=== PATIENT | male | born 1955 | race African-American/Black ===

== ENCOUNTER 2018-02-25 19:54 | Inpatient (IN) | payer MEDICARE ==
[2018-02-25 21:11] LABS: Lavender RECEIVED; Red RECEIVED
[2018-02-25 21:15] LABS: #Eosinphils 0.1 thou/uL (0.0-0.7); #Lymphocytes 1.2 thou/uL (1.20-3.40); #Monocytes 0.6 thou/uL (0.11-0.59); #Neutrophils 7.3 thou/uL (1.40-6.50); %Basophils 0.1 % (0.0-1.0); %Eosinophils 1.6 % (0.0-10.0); %Lymphocytes 12.7 % (21.0-51.0); %Monocytes 6.5 % (0.0-10.0); %Neutrophils 79.2 % (42.0-75.0); Hemoglobin 13.1 g/dL (14.0-18.0); Mean Corpuscular HGB CONC 33.2 g/dL (32.0-36.0); Mean Corpuscular Hemoglobin 30.7 pg (27.0-31.0); Mean Corpuscular Volume 92.4 fL (78.0-98.0); Mean Platelet Volume 6.2 fL (7.4-10.4); Platelet Count 311 thou/uL (130-400); RBC Distribution Width 12.3 % (11.5-14.5); Red Blood Cell (RBC) Count 4.27 mill/uL (4.70-6.10); White Blood Cell (WBC) Count 9.2 thou/uL (4.8-10.8)
[2018-02-25 21:34] LABS: ALT (SGPT) 20 U/L (8-55); AST (SGOT) 17 U/L (5-34); Albumin 3.7 g/dL (3.4-4.8); Alkaline Phosphatase 155 U/L (40-150); Anion Gap 18 mmol/L (10-20); BUN (Urea Nitrogen) 12 mg/dL (8.4-25.7); Bilirubin, Total 0.2 mg/dL (0.2-1.2); Calc. Creatinine Clearance 0 mL/min (70-130); Calcium 8.7 mg/dL (7.8-10.44); Carbon Dioxide 20 mmol/L (23-31); Chloride 106 mmol/L (98-107); Estimated GFR-MDRD Greater than 90; Globulin 3.8 g/dL (2.4-3.5); Glucose 138 mg/dL (80-115); Protein, Total 7.5 g/dL (5.8-8.1); Sodium 140 mmol/L (136-145)
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
[2018-02-25] MEDS ORDERED: Lorazepam 2 MG/ML VIAL ONE (22:01)
[2018-02-25] MEDS ORDERED: Ondansetron ODT 4 MG TAB PO PRN (22:13)
[2018-02-25] MEDS ORDERED: Calcium Carbonate 500 MG ChewTAB PO PRN (22:13)
[2018-02-25] MEDS ORDERED: Lorazepam 2 MG/ML VIAL SLOW IVP PRN (22:13)
[2018-02-25] MEDS ORDERED: Bisacodyl 5 MG TAB PO PRN (22:13)
[2018-02-25] MEDS ORDERED: Senokot S 8.6-50 MG TAB PO PRN (22:13)
[2018-02-25] MEDS ORDERED: Acetaminophen 650 MG Suppository PR PRN (22:13)
[2018-02-25] MEDS ORDERED: Acetaminophen 325 MG TAB PO PRN (22:13)
[2018-02-25] MEDS ORDERED: Ondansetron PF 4 MG/2 ML Vial IVP PRN (22:13)
[2018-02-25] MEDS ORDERED: HumaLOG 300 UNITS/3 ML VIAL SC PRN (22:20)
[2018-02-25] MEDS ORDERED: Dextrose 5% in Water 1,000 ML IV PRN (22:20)
[2018-02-25] MEDS ORDERED: Dextrose 50% Abboject 50 ML SYRINGE SLOW IVP PRN (22:20)
[2018-02-26] MEDS: Sodium Chloride 0.9% 1,000 ML IV SCH ×2 (00:26→08:03)
[2018-02-26 00:47] VITALS: BMI 24.4
[2018-02-26 05:14] LABS: Anion Gap 15 mmol/L (10-20); BUN (Urea Nitrogen) 9 mg/dL (8.4-25.7); Calc. Creatinine Clearance 133 mL/min (70-130); Calcium 8.4 mg/dL (7.8-10.44); Carbon Dioxide 20 mmol/L (23-31); Chloride 106 mmol/L (98-107); Estimated GFR-MDRD Greater than 90; Glucose 186 mg/dL (80-115); Potassium 4.2 mmol/L (3.5-5.1); Sodium 137 mmol/L (136-145)
[2018-02-26 05:29] LABS: Band 10 % (5-11); Basophilic Stippling SLIGHT = 1-2 cells (100X) (None Seen); Elliptocytes SLIGHT = 2-5 cells (100X) (0-1/hpf); Hemoglobin 12.4 g/dL (14.0-18.0); Lymphocytes 10 % (21-51); MDiff Complete? YES; Mean Corpuscular HGB CONC 33.6 g/dL (32.0-36.0); Mean Corpuscular Hemoglobin 30.3 pg (27.0-31.0); Mean Platelet Volume 6.9 fL (7.4-10.4); Monocytes 11 % (0-10); Neutrophil 63 % (42-75); PLT Morphology Comment Appears Adequate; Platelet Count 320 thou/uL (130-400); RBC Distribution Width 12.1 % (11.5-14.5); Reactive Lymphocytes 6 % (0-10); Red Blood Cell (RBC) Count 4.09 mill/uL (4.70-6.10); White Blood Cell (WBC) Count 12.1 thou/uL (4.8-10.8)
[2018-02-26] MEDS: Enoxaparin Sodium 40 MG/0.4 ML SYRINGE SC SCH (08:04)
[2018-02-26] MEDS: Famotidine/PF 20 mg/2ml Vial SLOW IVP SCH (08:04)
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
[2018-02-26] MEDS: Famotidine 20 MG TAB PO SCH ×2 (09:53→20:08)
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
[2018-02-26] MEDS: HumaLOG 300 UNITS/3 ML VIAL SC PRN (17:03)
--- NOTE | 2018-02-26 17:10 | MRI ---
NONCONTRAST MRI BRAIN: Date: 02-26-18 History: Seizure. Comparison: CT head, 02-25-18. FINDINGS: There is an area of encephalomalacia and gliosis seen in the medial aspect of the left occipital lobe . There is significant motion artifact present on FLAIR imaging which limits evaluation. However, the re does appear to be scattered punctate areas of increased FLAIR and T2 weighted signal which are non specific and probably related to mild chronic small vessel ischemic changes. There are no areas of re stricted diffusion seen to suggest an acute infarction. Septum pellucidum and third ventricle are on the midline. The ventricular system is normal in size, s hape, and position. There is mild cerebral volume loss, not unexpected for the patient's age. Appropriate flow voids are demonstrated at the base of the brain. Venetie Ira lenses are not visualized. There is mucosal thickening seen throughout the ethmoidal air cells bilaterally, trace mucosal thicke ankush in each maxillary antrum. Skull base has a normal MRI appearance. IMPRESSION: 1. No acute intracranial abnormality is demonstrated. 2. Small focal area of encephalomalacia and gliosis in the medial left occipital lobe likely related to a remote area of infarction. 3. Mild chronic small vessel ischemic changes and cerebral volume loss. 4. Sinus disease. POS: [facility]
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
[2018-02-27] MEDS: Famotidine/PF 20 mg/2ml Vial SLOW IVP SCH ×2 (02:52→08:31)
[2018-02-27] MEDS: HumaLOG 300 UNITS/3 ML VIAL SC PRN ×3 (06:28→16:57)
[2018-02-27] MEDS: Famotidine 20 MG TAB PO SCH (08:31)
[2018-02-27] MEDS: Enoxaparin Sodium 40 MG/0.4 ML SYRINGE SC SCH (08:31)
[2018-02-27 16:15] VITALS: TEMP 97.2
[2018-02-27 16:16] VITALS: BP 139/82
[2018-02-27] MEDS ORDERED: levETIRAcetam 500 MG TAB PO SCH ×2 (21:00)
[2018-02-27] MEDS ORDERED: Atorvastatin Calcium 10 MG TAB PO SCH (21:00)
[2018-02-27] MEDS ORDERED: glipiZIDE 5 MG TAB PO SCH (21:00)
--- NOTE | 2018-02-28 14:13 | DIS ---
DATE OF ADMISSION: 02/27/2018 DATE OF DISCHARGE: 02/27/2018 DISCHARGE DIAGNOSES: 1. Acute on chronic seizure. 2. 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 3. Hypertension. 4. Diabetes. HOSPITAL COURSE: The patient is a very pleasant 63-year-old male who has history of recurrent seizures, who initially came into the hospital for seizure. At this time, he was about to be discharged to home when he had another seizure and he was admitted for further observation. In talking to the patient's family, especially the son, the patient's son stated that they had noticed a few days of his medications that were not taken by the patient. The patient did have a Dilantin level checked, which was 9, which was subtherapeutic. At this time, he was loaded with Dilantin and also was admitted to the hospital for further evaluation. He did have a brain CT, which did indicate a remote insult to the medial left occipital lobe. At this time, I did go ahead and order an MRI of the brain, which did indicate a small focal area of encephalomalacia and gliosis in the medial left occipital lobe, likely related to a remote area of infarct and also had some mild chronic vessel ischemia. This was discussed with the patient's son. During the hospital stay, the patient had an unwitnessed fall, which the patient states he does not remember. At this time, further talking to the son, the son states that at times, the patient forgets and does not remember certain things. Based on talking with the patient's son, it was clear that his seizure was most likely secondary to missed doses of his medication and also subtherapeutic level of his Dilantin. He was loaded with Dilantin. I will continue the same dose of Dilantin extended release 100 mg b.i.d. and also we will continue his Keppra 500 mg b.i.d. I have encouraged the patient to follow up with Dr. Soriano, who is a neurologist in 2 to 3 weeks and also we will check a Dilantin level next week sometime, results to be faxed to his primary care doctor. HOME MEDICATIONS: His home medications will be as of the followin. Aspirin 81 mg daily and Atorvastatin 10 mg daily, which are new, given his remote insult to his brain. 2. Phenytoin 100 mg b.i.d. 3. Glipizide 5 mg b.i.d. 4. Keppra 500 mg b.i.d. 5. Metformin 1000 mg b.i.d. PHYSICAL EXAMINATION: VITAL SIGNS: 97.7, 92, 16, 98% on room air, 139/82. GENERAL: He is awake, alert, and oriented x3. Does not appear to be in distress. CV: S1 and S2 present. No murmurs, rubs, or gallops. ABDOMEN: Soft and nontender. Bowel sounds are present x2. EXTREMITIES: No edema. Pedal pulses are present x2. DISCHARGE INSTRUCTIONS: Again, he will be discharged home. He will follow up with his primary care doctor. Job ID: [id number]
== END 2018-02-27 19:51 | disposition home or self-care (01) | DRG 101 ==
LOC: ERS 19:54 → 2SE 22:10 → OBSVTOIN 02-27 17:55
PROVIDERS: ADMIT Internal Medicine; ATTEND Internal Medicine
DX: G40.419 Other generalized epilepsy and epileptic syndromes, intractable, without status epilepticus (principal); I10 Essential (primary) hypertension; E11.9 Type 2 diabetes mellitus without complications; Z91.14 Patient's other noncompliance with medication regimen; Z83.3 Family history of diabetes mellitus; Z79.84 Long term (current) use of oral hypoglycemic drugs; Z79.899 Other long term (current) drug therapy
CPT/HCPCS: 36415; 36416; 70450; 70551; 80048; 80053; 80185; 83735; 84146; 84443; 85025; 90471; 90686; 90732; 93005; 94760; 96365; 96372; G0008; G0009; G8978-GP-CJ; G8979-GP-CJ; G8980-GP-CJ; G8996-GN-CH; G8997-GN-CH; J1650; J1953; J2060; J7050; Q2009; S0028

== ENCOUNTER 2019-02-08 12:15 | Observation (INO) | payer MEDICARE, MEDICAID ==
[2019-02-08 13:22] LABS: Bilirubin Negative (Negative); Blood, Urine 1+ (Negative); Clarity Turbid (Clear); Glucose, Urine (Dipstick) Greater than 1000 mg/dL (Negative); Leukocyte 75 Leu/uL (Negative); Nitrite Negative (Negative); Protein, Urine (Dipstick) 20 mg/dL (Neg-Trace); Squamous Epithelial None Seen HPF (0-3); Urobilinogen Normal mg/dL (Less than 2)
[2019-02-08 13:31] LABS: Bacteria/HPF 4+ HPF (None Seen)
[2019-02-08 14:32] LABS: #Monocytes 0.5 thou/uL (0.11-0.59); #Neutrophils 6.5 thou/uL (1.40-6.50); %Basophils 0.2 % (0.0-1.0); %Eosinophils 0.5 % (0.0-10.0); %Lymphocytes 12.2 % (21.0-51.0); %Monocytes 6.2 % (0.0-10.0); Hemoglobin 12.9 g/dL (14.0-18.0); Mean Corpuscular Hemoglobin 30.6 pg (27.0-31.0); Mean Corpuscular Volume 92.5 fL (78.0-98.0); Mean Platelet Volume 6.3 fL (7.4-10.4); Platelet Count 302 thou/uL (130-400); RBC Distribution Width 12.6 % (11.5-14.5); Red Blood Cell (RBC) Count 4.23 mill/uL (4.70-6.10)
[2019-02-08] MEDS ORDERED: Lorazepam 2 MG/ML VIAL ONE (14:39)
[2019-02-08] MEDS ORDERED: Acetaminophen 325 MG TAB PO PRN (14:52)
[2019-02-08] MEDS ORDERED: Bisacodyl 5 MG TAB PO PRN (14:52)
[2019-02-08] MEDS ORDERED: Lorazepam 2 MG/ML VIAL SLOW IVP PRN (14:56)
[2019-02-08 14:59] LABS: ALT (SGPT) 18 U/L (8-55); AST (SGOT) 14 U/L (5-34); Albumin 3.9 g/dL (3.4-4.8); Alkaline Phosphatase 146 U/L (40-110); Anion Gap 17 mmol/L (10-20); BUN (Urea Nitrogen) 11 mg/dL (8.4-25.7); Bilirubin, Total 0.2 mg/dL (0.2-1.2); Calc. Creatinine Clearance 0 mL/min (70-130); Calcium 8.7 mg/dL (7.8-10.44); Carbon Dioxide 21 mmol/L (23-31); Chloride 102 mmol/L (98-107); Estimated GFR-MDRD Greater than 90; Globulin 3.9 g/dL (2.4-3.5); Glucose 238 mg/dL (80-115); Potassium 4.4 mmol/L (3.5-5.1); Protein, Total 7.8 g/dL (5.8-8.1); Sodium 136 mmol/L (136-145)
[2019-02-08] MEDS ORDERED: Dextrose 50% Abboject 50 ML SYRINGE SLOW IVP PRN (14:59)
[2019-02-08] MEDS ORDERED: Dextrose 5% in Water 1,000 ML IV PRN (14:59)
[2019-02-08] MEDS ORDERED: levETIRAcetam In NaCl (Iso-Os) 1,000 MG in Premix Bag 1 BAG IVPB SCH (15:00)
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
--- NOTE | 2019-02-08 15:40 | CT ---
CT BRAIN WITHOUT CONTRAST: HISTORY: Seizure, fall COMPARISON: 02/25/2018 FINDINGS: Old infarction involving the medial left occipital lobe is again seen. No evidence of acute infarct, hemorrhage, midline shift or abnormal extra-axial fluid collections is seen. The ventricular size is appropriate and the basilar cisterns are patent. The bony calvarium is intact. The visualized para nasal sinuses and mastoid air cells are well aerated. There is mild mucosal disease in the ethmoid air cells. IMPRESSION: No CT evidence of acute intracranial process.
[2019-02-08] MEDS: Sodium Chloride 0.9% 1,000 ML IV SCH (17:48)
[2019-02-08] MEDS: cefTRIAXone\\ROCEPHIN 1 GM in Sodium Chloride 0.9% 100 ML IVPB SCH (19:59)
[2019-02-08 20:08] VITALS: BMI 22.9
[2019-02-08 20:16] LABS: Lactic Acid 2.8 mmol/L (0.5-2.2)
[2019-02-08] MEDS ORDERED: Atorvastatin Calcium 10 MG TAB PO SCH (21:00)
[2019-02-08] MEDS: levETIRAcetam 500 MG TAB PO SCH (23:12)
[2019-02-09] MEDS: HumaLOG 300 UNITS/3 ML VIAL SC PRN ×2 (06:50→13:46)
[2019-02-09 08:48] LABS: Anion Gap 10 mmol/L (10-20); BUN (Urea Nitrogen) 12 mg/dL (8.4-25.7); Calc. Creatinine Clearance 112 mL/min (70-130); Calcium 8.8 mg/dL (7.8-10.44); Carbon Dioxide 26 mmol/L (23-31); Chloride 106 mmol/L (98-107); Estimated GFR-MDRD Greater than 90; Glucose 152 mg/dL (80-115); Potassium 4.1 mmol/L (3.5-5.1); Sodium 138 mmol/L (136-145)
[2019-02-09] MEDS ORDERED: Aspirin Chewable 81 MG TAB PO SCH (09:00)
[2019-02-09] MEDS: levETIRAcetam 500 MG TAB PO SCH (10:30)
[2019-02-09] MEDS: Sodium Chloride 0.9% 1,000 ML IV SCH (10:31)
[2019-02-09 10:51] LABS: #Basophils 0.1 thou/uL (0.0-0.2); #Eosinphils 0.2 thou/uL (0.0-0.7); #Lymphocytes 1.8 thou/uL (1.20-3.40); #Monocytes 0.7 thou/uL (0.11-0.59); #Neutrophils 7.4 thou/uL (1.40-6.50); %Basophils 0.7 % (0.0-1.0); %Eosinophils 2.1 % (0.0-10.0); %Lymphocytes 17.3 % (21.0-51.0); %Neutrophils 72.9 % (42.0-75.0); Hemoglobin 13.3 g/dL (14.0-18.0); Mean Corpuscular HGB CONC 32.9 g/dL (32.0-36.0); Mean Corpuscular Hemoglobin 30.7 pg (27.0-31.0); Mean Corpuscular Volume 93.4 fL (78.0-98.0); Mean Platelet Volume 6.4 fL (7.4-10.4); Platelet Count 311 thou/uL (130-400); RBC Distribution Width 12.7 % (11.5-14.5); Red Blood Cell (RBC) Count 4.34 mill/uL (4.70-6.10); White Blood Cell (WBC) Count 10.2 thou/uL (4.8-10.8)
[2019-02-09 15:58] VITALS: BP 134/68; TEMP 98.6
[2019-02-09] MEDS: cefTRIAXone\\ROCEPHIN 1 GM in Sodium Chloride 0.9% 100 ML IVPB SCH (16:16)
--- NOTE | 2019-02-09 21:01 | DIS ---
DATE OF ADMISSION: 02/08/2019 DATE OF DISCHARGE: 02/09/2019 PRIMARY CARE PROVIDER: Susanna Gallegos. DISCHARGE DIAGNOSES: 1. Seizure. 2. Lactic acidosis. 3. Urinary tract infection, suspected. CONDITION OF PATIENT ON THE DAY OF DISCHARGE: Stable. I assessed Mr. Deluna on the day of discharge. He denies any complaints. He is alert and oriented x3. Vital signs are stable. S1 and S2 are heard, regular. Lungs are clear to auscultation bilaterally. HOSPITAL COURSE: Mr. Deluna is a pleasant 64-year-old gentleman, who was admitted to [facility] on 02/08/2019, for seizures. He reportedly ran out of Keppra a week prior to this admission. He was loaded with Keppra. His phenytoin level was subtherapeutic at 9.6. His phenytoin dose has been changed from 100 mg 2 times a day to 100 mg 3 times a day. Urinalysis was suggestive of urinary tract infection. He was started on antibiotics, being stepped down to oral antibiotics at the time of discharge. He has also been advised to follow up with Neurology if he keeps having recurrent seizures. LABORATORY DATA: On the day of discharge, he has white count 10,200, hemoglobin 13.3, platelet count 311,000. Sodium 138, potassium 4.1, and creatinine 0.69. DISCHARGE MEDICATIONS: 1. Glipizide 5 mg 2 times a day. 2. Metformin 1000 mg 2 times a day. 3. Aspirin 81 mg daily. 4. Lipitor 10 mg at bedtime. 5. Keppra 500 mg 2 times a day. 6. Macrobid 100 mg 2 times a day for 6 days. 7. Phenytoin 100 mg 3 times a day. FOLLOWUP: He has been advised to follow up with primary care provider for final blood and urine culture reports. He has also been advised to have his phenytoin and albumin levels checked in 5 days through primary care provider's office. Many thanks for allowing me to participate in your patient's care. Please feel free to contact me with any questions or concerns. DISCHARGE DESTINATION: Home. Job ID: [id number]
== END 2019-02-09 18:50 | disposition home or self-care (01) ==
LOC: ERS 12:15 → INTOOBSV 17:20 → 2SE 17:20
PROVIDERS: ADMIT Internal Medicine; ATTEND Internal Medicine
DX: G40.909 Epilepsy, unspecified, not intractable, without status epilepticus (principal); E87.2 Acidosis; N39.0 Urinary tract infection, site not specified; E11.9 Type 2 diabetes mellitus without complications; Z79.82 Long term (current) use of aspirin; Z79.84 Long term (current) use of oral hypoglycemic drugs; Z79.899 Other long term (current) drug therapy; W18.30XA Fall on same level, unspecified, initial encounter
CPT/HCPCS: 70450; 80048; 80053; 80185; 82962 ×2; 83605; 85025 ×2; 87040; 87086; 96361; 96374; 96375; 99285; G0378 ×3; 36415; 36416; 81003; 81015; J0696; J1953; J2060; J3490

== ENCOUNTER 2019-03-14 15:18 | Outpatient (CLI) | payer MEDICARE, MEDICAID ==
--- NOTE | 2019-03-14 15:30 | RAD ---
XR Knee Rt 4 View STANDARD HISTORY: Right knee pain FINDINGS: No fracture or dislocation is identified. Degenerative changes and chondrocalcinosis are noted.
== END 2019-03-14 15:19 | disposition home or self-care (01) ==
LOC: RAD-FRANK 15:18
PROVIDERS: ATTEND Nurse Practitioner Family
DX: M25.561 Pain in right knee (principal); M94.261 Chondromalacia, right knee; M17.11 Unilateral primary osteoarthritis, right knee

== ENCOUNTER 2021-10-24 21:48 | Emergency (ER) | payer OTHER, MEDICAID ==
[2021-10-24] MEDS ORDERED: Boostrix 0.5 ML (Tdap) VIAL ONE (22:34)
[2021-10-24 23:29] LABS: ALT (SGPT) 16 U/L (8-55); AST (SGOT) 16 U/L (5-34); Albumin 4.1 g/dL (3.4-4.8); Alkaline Phosphatase 100 U/L (40-110); Anion Gap 18 mmol/L (10-20); BUN (Urea Nitrogen) 14 mg/dL (8.4-25.7); Bilirubin, Total 0.3 mg/dL (0.2-1.2); Calc. Creatinine Clearance 0 mL/min (70-130); Calcium 9.2 mg/dL (7.8-10.44); Carbon Dioxide 20 mmol/L (23-31); Chloride 102 mmol/L (98-107); Estimated GFR 99; Globulin 4.4 g/dL (2.4-3.5); Glucose 260 mg/dL (80-115); Lipase 29 U/L (8-78); Magnesium 1.8 mg/dL (1.6-2.6); Potassium 4.4 mmol/L (3.5-5.1); Protein, Total 8.5 g/dL (5.8-8.1); Sodium 136 mmol/L (136-145)
[2021-10-25 00:35] LABS: Bacteria/HPF 3+ HPF (None Seen); Bilirubin Negative (Negative); Blood, Urine 2+ (Negative); Clarity Turbid (Clear); Glucose, Urine (Dipstick) Greater than 1000 mg/dL (Negative); Ketone, Urine 10 mg/dL (Negative); Leukocyte 75 Leu/uL (Negative); Nitrite 1+ (Negative); Protein, Urine (Dipstick) 50 mg/dL (Neg-Trace); RBC/HPF 0-3 HPF (0-3); Specific Gravity, Urine 1.019 (1.002-1.036); Squamous Epithelial None Seen HPF (0-3); Urobilinogen Normal mg/dL (Less than 2); WBC/HPF 21-50 HPF (0-3); pH, Urine 6.5 (5.0-9.0)
[2021-10-25 00:54] LABS: #Lymphocytes 1.5 thou/uL (1.20-3.40); #Monocytes 0.8 thou/uL (0.11-0.59); %Basophils 0.1 % (0.0-1.0); %Monocytes 6.6 % (0.0-10.0); %Neutrophils 81.3 % (42.0-75.0); Mean Corpuscular HGB CONC 33.6 g/dL (32.0-36.0); Mean Corpuscular Hemoglobin 30.6 pg (27.0-31.0); Mean Corpuscular Volume 91.1 fL (78.0-98.0); Mean Platelet Volume 6.8 fL (7.4-10.4); Platelet Count 238 thou/uL (130-400); RBC Distribution Width 12.5 % (11.5-14.5); Red Blood Cell (RBC) Count 4.25 mill/uL (4.70-6.10); White Blood Cell (WBC) Count 12.3 thou/uL (4.8-10.8)
== END 2021-10-25 03:34 | disposition home or self-care (01) ==
LOC: ERS 21:48
DX: S52.501A Unspecified fracture of the lower end of right radius, initial encounter for closed fracture (principal); S42.401A Unspecified fracture of lower end of right humerus, initial encounter for closed fracture; R56.9 Unspecified convulsions; N39.0 Urinary tract infection, site not specified; E11.9 Type 2 diabetes mellitus without complications; Z79.899 Other long term (current) drug therapy
CPT/HCPCS: 29105; 36415; 70450; 71045; 72125; 80053; 81003; 81015; 83690; 83735; 83880; 84484; 85025; 90471; 90715

== ENCOUNTER 2023-08-04 19:20 | Inpatient (IN) | payer OTHER, MEDICAID ==
[2023-08-04] MEDS ORDERED: LORazepam 2 MG/ML SYR.(CARPUJECT) ONE (20:09)
[2023-08-04] MEDS ORDERED: levETIRAcetam 500 MG (5 mL) VIAL ONE (20:09)
[2023-08-04 21:08] LABS: #Basophils 0.03 10x3/uL (0.0-0.2); #Eosinphils Less than 0.03 10x3/uL (0.0-0.7); %Basophils 0.3 % (0.0-1.0); %Lymphocytes 10.5 % (21.0-51.0); %Monocytes 4.9 % (0.0-10.0); %Neutrophils 83.9 % (42.0-75.0); Hematocrit 41.1 % (42.0-52.0); Hemoglobin 13.1 g/dL (14.0-18.0); Mean Corpuscular HGB CONC 31.9 g/dL (32.0-36.0); Mean Corpuscular Hemoglobin 28.1 pg (27.0-31.0); Mean Platelet Volume 9.8 fL (7.4-10.4); Platelet Count 323 10x3/uL (130-400); RBC Distribution Width 13.5 % (11.5-14.5); Red Blood Cell (RBC) Count 4.67 mill/uL (4.70-6.10)
[2023-08-04 21:17] LABS: ALT (SGPT) 17 U/L (8-55); AST (SGOT) 16 U/L (5-34); Albumin 3.9 g/dL (3.4-4.8); Alkaline Phosphatase 103 U/L (40-110); Anion Gap 24 mmol/L (10-20); BUN (Urea Nitrogen) 11 mg/dL (8.4-25.7); Bilirubin, Total 0.3 mg/dL (0.2-1.2); Calc. Creatinine Clearance 0 mL/min (70-130); Carbon Dioxide 15 mmol/L (23-31); Chloride 106 mmol/L (98-107); Estimated GFR 95; Globulin 4.9 g/dL (2.4-3.5); Glucose 260 mg/dL (80-115); Magnesium 1.7 mg/dL (1.6-2.6); Potassium 3.8 mmol/L (3.5-5.1); Protein, Total 8.8 g/dL (5.8-8.1); Sodium 141 mmol/L (136-145)
[2023-08-04] MEDS ORDERED: Magnesium 2 GM/50 ML BAG (IN WATER) ONE (22:18)
[2023-08-04 22:50] LABS: Bacteria/HPF 4+ HPF (None Seen); Bilirubin Negative (Negative); Blood, Urine 1+ (Negative); Clarity Turbid (Clear); Glucose, Urine (Dipstick) Greater than 1000 mg/dL (Negative); Ketone, Urine 20 mg/dL (Negative); Leukocyte 75 Leu/uL (Negative); Nitrite Negative (Negative); Protein, Urine (Dipstick) 30 mg/dL (Neg-Trace); RBC/HPF 0-3 HPF (0-3); Specific Gravity, Urine 1.013 (1.002-1.036); Squamous Epithelial 0-3 HPF (0-3); Urobilinogen Normal mg/dL (Less than 2); WBC/HPF 21-50 HPF (0-3); pH, Urine 6.5 (5.0-9.0)
[2023-08-05] MEDS ORDERED: Dextrose 5% in Water 1,000 ML IV PRN (00:17)
[2023-08-05] MEDS ORDERED: Acetaminophen 325 MG TAB PO PRN ×2 (00:17→00:30)
[2023-08-05] MEDS ORDERED: Dextrose 50% Abboject 50 ML SYRINGE SLOW IVP PRN (00:17)
[2023-08-05] MEDS ORDERED: Glucagon 1 MG/ML KIT IM PRN (00:17)
[2023-08-05] MEDS ORDERED: Ondansetron PF 4 MG/2 ML Vial IVP PRN ×2 (00:17→00:30)
[2023-08-05] MEDS ORDERED: HumaLOG 300 UNITS/3 ML VIAL SC PRN (00:17)
[2023-08-05] MEDS ORDERED: Ondansetron ODT 4 MG TAB SL PRN (00:30)
[2023-08-05] MEDS ORDERED: Sodium Chloride 0.9% 100 ML ONE (01:02)
[2023-08-05] MEDS ORDERED: cefTRIAXone (ROCEPHIN) 1 GM VIAL ONE (01:02)
[2023-08-05 02:41] VITALS: BMI 22.3
[2023-08-05] MEDS: Lactated Ringer's 1,000 ML IV SCH (03:36)
[2023-08-05] MEDS: cefTRIAXone\\ROCEPHIN 1 GM in Sodium Chloride 0.9% 100 ML IVPB SCH (03:36)
[2023-08-05 04:27] LABS: #Basophils 0.03 10x3/uL (0.0-0.2); #Eosinphils Less than 0.03 10x3/uL (0.0-0.7); %Basophils 0.3 % (0.0-1.0); %Eosinophils 0.1 % (0.0-10.0); %Lymphocytes 13.1 % (21.0-51.0); %Monocytes 9.1 % (0.0-10.0); Hematocrit 36.3 % (42.0-52.0); Hemoglobin 11.9 g/dL (14.0-18.0); Mean Corpuscular HGB CONC 32.8 g/dL (32.0-36.0); Mean Corpuscular Hemoglobin 28.6 pg (27.0-31.0); Mean Corpuscular Volume 87.3 fL (78.0-98.0); Mean Platelet Volume 8.9 fL (7.4-10.4); Platelet Count 278 10x3/uL (130-400); RBC Distribution Width 13.4 % (11.5-14.5); Red Blood Cell (RBC) Count 4.16 mill/uL (4.70-6.10)
[2023-08-05 04:49] LABS: Anion Gap 15 mmol/L (10-20); BUN (Urea Nitrogen) 7 mg/dL (8.4-25.7); Calc. Creatinine Clearance 105 mL/min (70-130); Calcium 8.4 mg/dL (7.8-10.44); Carbon Dioxide 20 mmol/L (23-31); Chloride 108 mmol/L (98-107); Estimated GFR 102; Glucose 171 mg/dL (80-115); Potassium 3.9 mmol/L (3.5-5.1); Sodium 139 mmol/L (136-145)
[2023-08-05] MEDS: Sodium Bicarb 50 mEq/50 ML VIAL IVP SCH (05:15)
[2023-08-05 08:39] VITALS: BMI 22.3
[2023-08-05] MEDS: levETIRAcetam 500 MG (5 mL) VIAL SLOW IVP SCH (08:57)
[2023-08-05] MEDS: Sodium Chloride 0.9% 1,000 ML IV SCH (09:09)
[2023-08-05] MEDS ORDERED: Iopamidol-370 76% 500 ML MDV (1 ML CHARGE) ONE (11:44)
[2023-08-05] MEDS: Lacosamide 150 MG in Sodium Chloride 0.9% 50 ML IVPB SCH (12:28)
[2023-08-06] MEDS: levETIRAcetam 500 MG TAB PO SCH (00:44)
[2023-08-06] MEDS: Lacosamide 50 mg Tablet PO SCH (00:45)
[2023-08-06] MEDS: Lacosamide 150 MG in Sodium Chloride 0.9% 50 ML IVPB SCH (01:25)
[2023-08-06] MEDS: HumaLOG 300 UNITS/3 ML VIAL SC PRN (06:29)
[2023-08-06] MEDS ORDERED: Non-Formulary Item 1 EACH (Sitagliptin Phosphate [Januvia] 50 MG Tab) PO SCH (09:00)
[2023-08-06] MEDS: Lisinopril 20 MG TAB PO SCH (09:08)
[2023-08-06] MEDS: Aspirin Chewable 81 MG TAB PO SCH (09:08)
[2023-08-06 09:59] VITALS: BP 142/84; TEMP 98
[2023-08-06] MEDS ORDERED: Atorvastatin Calcium 10 MG TAB PO SCH (21:00)
== END 2023-08-06 14:10 | disposition home or self-care (01) | DRG 690 ==
LOC: ERS 19:20 → 2SE 08-05 00:19 → UNDODISOB 08-06 02:55 → OBSVTOIN 08-06 10:48
PROVIDERS: ADMIT Internal Medicine; ATTEND Internal Medicine
PROC: 4A00X4Z Measurement of Central Nervous Electrical Activity, External Approach (ICD-10-PCS; principal; 2023-08-05)
DX: N39.0 Urinary tract infection, site not specified (principal); G40.919 Epilepsy, unspecified, intractable, without status epilepticus; E11.9 Type 2 diabetes mellitus without complications; E78.5 Hyperlipidemia, unspecified; Z79.82 Long term (current) use of aspirin; Z79.899 Other long term (current) drug therapy; Z98.890 Other specified postprocedural states; Z79.84 Long term (current) use of oral hypoglycemic drugs
CPT/HCPCS: 36415; 36416; 70450; 74177; 80048; 80053; 80177; 81001; 83735; 85025; 93005; 95700; 95711; 95819; 96361; 96365; 96367; 96375; 96376; C9254; G0378; J0696; J1815; J1953; J2060; J3475; J3490; J7050; J7120; Q9967

== ENCOUNTER 2023-12-09 10:51 | Inpatient (IN) | payer OTHER ==
[~2023-12-09 10:51] MED LIST: Iopamidol-370 76% 500 ML MDV (1 ML CHARGE) ONE
[2023-12-09] MEDS ORDERED: levETIRAcetam 500 MG (5 mL) VIAL ONE ×2 (11:48→14:52)
[2023-12-09 12:19] LABS: #Basophils 0.04 10x3/uL (0.0-0.2); #Eosinophils Less than 0.03 10x3/uL (0.0-0.7); %Basophils 0.5 % (0.0-1.0); %Eosinophils 0.1 % (0.0-10.0); %Lymphocytes 10.5 % (21.0-51.0); %Monocytes 6.7 % (0.0-10.0); %Neutrophils 81.9 % (42.0-75.0); Hematocrit 34.1 % (42.0-52.0); Hemoglobin 11.1 g/dL (14.0-18.0); Mean Corpuscular HGB CONC 32.6 g/dL (32.0-36.0); Mean Corpuscular Hemoglobin 28.2 pg (27.0-31.0); Mean Corpuscular Volume 86.5 fL (78.0-98.0); Mean Platelet Volume 9.3 fL (7.4-10.4); Platelet Count 299 10x3/uL (130-400); RBC Distribution Width 13.2 % (11.5-14.5); Red Blood Cell (RBC) Count 3.94 mill/uL (4.70-6.10)
[2023-12-09 12:31] LABS: ALT (SGPT) 17 U/L (8-55); AST (SGOT) 14 U/L (5-34); Albumin 3.3 g/dL (3.4-4.8); Alkaline Phosphatase 91 U/L (40-110); Anion Gap 12 mmol/L (10-20); BUN (Urea Nitrogen) 12 mg/dL (8.4-25.7); Bilirubin, Total 0.3 mg/dL (0.2-1.2); Calc. Creatinine Clearance 0 mL/min (70-130); Calcium 8.4 mg/dL (7.8-10.44); Carbon Dioxide 24 mmol/L (23-31); Chloride 107 mmol/L (98-107); Estimated GFR 102; Globulin 3.4 g/dL (2.4-3.5); Glucose 207 mg/dL (80-115); Potassium 3.8 mmol/L (3.5-5.1); Protein, Total 6.7 g/dL (5.8-8.1); Sodium 139 mmol/L (136-145)
[2023-12-09 12:36] LABS: Troponin I Less than 0.010 ng/mL (< 0.028)
[2023-12-09 13:04] LABS: INR-International Normal Ratio 1.1; PTT 30.5 sec (22.9-36.1); Prothrombin Time 14.7 sec (12.0-14.7)
[2023-12-09] MEDS ORDERED: Lorazepam 2 MG/ML VIAL ONE (13:42)
[2023-12-09] MEDS ORDERED: Ondansetron PF 4 MG/2 ML Vial IVP PRN (15:11)
[2023-12-09] MEDS ORDERED: Acetaminophen 325 MG TAB PO PRN (15:11)
[2023-12-09] MEDS ORDERED: Lorazepam 2 MG/ML VIAL SLOW IVP PRN (15:11)
[2023-12-09] MEDS ORDERED: Dextrose 5% in Water 1,000 ML IV PRN (15:20)
[2023-12-09] MEDS ORDERED: Dextrose 50% Abboject 50 ML SYRINGE SLOW IVP PRN (15:20)
[2023-12-09] MEDS ORDERED: Glucagon 1 MG/ML KIT IM PRN (15:20)
[2023-12-09 15:58] LABS: Magnesium 1.3 mg/dL (1.6-2.6)
[2023-12-09] MEDS: LACOSAMIDE IVPB SCH (17:00)
[2023-12-09] MEDS: SODIUM CHLORIDE 0.9% IVPB SCH (17:00)
[2023-12-09] MEDS: FLU (Fluad Triv) TS24-25 (65UP)/MF59C/PF 45 MCG/0.5 ML Syringe IM ONE (17:58)
[2023-12-09] MEDS: Magnesium 2 GM/50 ML(in water) 2 GM in Premix 1 BAG IVPB SCH (17:58)
[2023-12-09] MEDS ORDERED: Electrolyte Replacement Protocol 1 EACH FS SCH (19:30)
[2023-12-09] MEDS: Metoprolol Tartrate 5 MG (5 mL) VIAL IVP PRN (19:48)
[2023-12-09 20:21] LABS: #Basophils 0.04 10x3/uL (0.0-0.2); #Eosinophils Less than 0.03 10x3/uL (0.0-0.7); %Basophils 0.3 % (0.0-1.0); %Lymphocytes 7.1 % (21.0-51.0); %Monocytes 6.2 % (0.0-10.0); %Neutrophils 85.9 % (42.0-75.0); Hematocrit 44.2 % (42.0-52.0); Hemoglobin 13.9 g/dL (14.0-18.0); Mean Corpuscular HGB CONC 31.4 g/dL (32.0-36.0); Mean Corpuscular Hemoglobin 28.4 pg (27.0-31.0); Mean Corpuscular Volume 90.2 fL (78.0-98.0); Mean Platelet Volume 8.9 fL (7.4-10.4); Platelet Count 340 10x3/uL (130-400); RBC Distribution Width 13.2 % (11.5-14.5)
[2023-12-09 20:28] LABS: Anion Gap 18 mmol/L (10-20); BUN (Urea Nitrogen) 9 mg/dL (8.4-25.7); Calc. Creatinine Clearance 97 mL/min (70-130); Calcium 8.9 mg/dL (7.8-10.44); Carbon Dioxide 19 mmol/L (23-31); Chloride 108 mmol/L (98-107); Estimated GFR 100; Glucose 240 mg/dL (80-115); Potassium 3.7 mmol/L (3.5-5.1); Sodium 141 mmol/L (136-145)
[2023-12-09] MEDS: Insulin Regular, Human 100 UNIT/ML 10 ML VIAL SC PRN (22:21)
[2023-12-09] MEDS: Atorvastatin Calcium 40 MG TAB PO SCH (22:22)
[2023-12-09] MEDS: Famotidine 20 MG TAB PO SCH (22:22)
[2023-12-09] MEDS: Lacosamide 50 mg Tablet PO SCH (22:22)
[2023-12-09 22:40] LABS: Bacteria/HPF None Seen HPF (None Seen); Bilirubin Negative (Negative); Blood, Urine Trace (Negative); Clarity Clear (Clear); Glucose, Urine (Dipstick) 500 mg/dL (Negative); Ketone, Urine Trace mg/dL (Negative); Leukocyte Negative Leu/uL (Negative); Nitrite Negative (Negative); Protein, Urine (Dipstick) Negative (Neg-Trace); RBC/HPF 0-3 HPF (0-3); Specific Gravity, Urine 1.009 (1.002-1.036); Squamous Epithelial None Seen HPF (0-3); Urobilinogen Normal mg/dL (Less than 2); WBC/HPF 0-3 HPF (0-3)
[2023-12-09] MEDS: Fosphenytoin Sodium 100 MG in Sodium Chloride 0.9% 50 ML IVPB SCH (22:54)
[2023-12-10 07:39] LABS: #Basophils 0.07 10x3/uL (0.0-0.2); #Eosinophils Less than 0.03 10x3/uL (0.0-0.7); %Basophils 0.5 % (0.0-1.0); %Lymphocytes 10.8 % (21.0-51.0); %Monocytes 6.8 % (0.0-10.0); %Neutrophils 81.7 % (42.0-75.0); Hematocrit 43.9 % (42.0-52.0); Hemoglobin 13.7 g/dL (14.0-18.0); Mean Corpuscular HGB CONC 31.2 g/dL (32.0-36.0); Mean Corpuscular Hemoglobin 28.8 pg (27.0-31.0); Mean Corpuscular Volume 92.2 fL (78.0-98.0); Mean Platelet Volume 8.8 fL (7.4-10.4); Platelet Count 323 10x3/uL (130-400); RBC Distribution Width 13.2 % (11.5-14.5); Red Blood Cell (RBC) Count 4.76 mill/uL (4.70-6.10)
[2023-12-10 07:48] LABS: Lactic Acid 2.26 mmol/L (0.5-2.2)
[2023-12-10 07:51] LABS: Magnesium 1.9 mg/dL (1.6-2.6)
[2023-12-10] MEDS: Lisinopril 20 MG TAB PO SCH (09:50)
[2023-12-10] MEDS: Enoxaparin 40 MG (0.4 mL) SYRINGE SC SCH (09:51)
[2023-12-10] MEDS: Magnesium 2 GM/50 ML(in water) 2 GM in Premix 1 BAG IVPB SCH (09:52)
[2023-12-10 12:45] LABS: Influenza A by NAA Not Detected (NotDetected); Influenza B by NAA Not Detected (NotDetected); SARS-CoV-2 NAA Rapid Test Not Detected (NotDetected)
[2023-12-10 14:09] VITALS: BMI 21.4
[2023-12-10] MEDS: levETIRAcetam 500 MG TAB PO SCH (21:18)
[2023-12-11 07:15] LABS: Magnesium 1.9 mg/dL (1.6-2.6)
[2023-12-11] MEDS: Magnesium 2 GM/50 ML(in water) 2 GM in Premix 1 BAG IVPB SCH (09:21)
[2023-12-11 10:06] LABS: #Basophils 0.08 10x3/uL (0.0-0.2); %Basophils 0.7 % (0.0-1.0); %Eosinophils 0.4 % (0.0-10.0); %Lymphocytes 19.4 % (21.0-51.0); %Monocytes 8.7 % (0.0-10.0); %Neutrophils 70.5 % (42.0-75.0); Hematocrit 43.2 % (42.0-52.0); Hemoglobin 13.7 g/dL (14.0-18.0); Mean Corpuscular HGB CONC 31.7 g/dL (32.0-36.0); Mean Corpuscular Hemoglobin 28.6 pg (27.0-31.0); Mean Corpuscular Volume 90.2 fL (78.0-98.0); Mean Platelet Volume 11.5 fL (7.4-10.4); Platelet Count 254 10x3/uL (130-400); RBC Distribution Width 13.4 % (11.5-14.5); Red Blood Cell (RBC) Count 4.79 mill/uL (4.70-6.10)
[2023-12-11] MEDS: metFORMIN 500 MG TAB PO SCH (17:32)
[2023-12-12 05:39] LABS: Magnesium 1.6 mg/dL (1.6-2.6)
[2023-12-12] MEDS: Alogliptin 25 MG TAB PO SCH (08:54)
[2023-12-12] MEDS: glipiZIDE 5 MG TAB PO SCH (08:54)
[2023-12-12] MEDS: Aspirin Chewable 81 MG TAB PO SCH (08:54)
[2023-12-12] MEDS: Magnesium 2 GM/50 ML(in water) 2 GM in Premix 1 BAG IVPB SCH (08:55)
[2023-12-13] MEDS: hydrALAZINE 25 MG TAB PO PRN (04:43)
[2023-12-13 04:54] LABS: Magnesium 1.5 mg/dL (1.6-2.6)
[2023-12-13] MEDS: Magnesium 2 GM/50 ML(in water) 2 GM in Premix 1 BAG IVPB SCH (08:23)
[2023-12-13] MEDS: Insulin Glargine 30 UNITS/0.3 ML VIAL SC SCH (08:23)
[2023-12-14 05:28] LABS: Magnesium 1.4 mg/dL (1.6-2.6)
[2023-12-14] MEDS: Magnesium Oxide 400 MG TAB PO SCH (08:53)
[2023-12-14] MEDS: Magnesium Sulfate In Water 4 GM in Premix 1 BAG IVPB SCH (09:49)
[2023-12-15 11:20] VITALS: BMI 21.4
[2023-12-17 08:06] VITALS: BP 143/78; TEMP 98.4
== END 2023-12-17 10:00 | DRG 101 ==
LOC: ERS 10:51 → 2SE 14:48
PROVIDERS: ADMIT Internal Medicine; ATTEND Hospitalist
PROC: 4A00X4Z Measurement of Central Nervous Electrical Activity, External Approach (ICD-10-PCS; principal; 2023-12-09)
DX: G40.909 Epilepsy, unspecified, not intractable, without status epilepticus (principal); R65.10 Systemic inflammatory response syndrome (SIRS) of non-infectious origin without acute organ dysfunction; E11.9 Type 2 diabetes mellitus without complications; I10 Essential (primary) hypertension; E78.5 Hyperlipidemia, unspecified; Z90.49 Acquired absence of other specified parts of digestive tract; Z98.890 Other specified postprocedural states; Z79.82 Long term (current) use of aspirin; Z79.84 Long term (current) use of oral hypoglycemic drugs; Z79.899 Other long term (current) drug therapy; Z79.4 Long term (current) use of insulin; R53.81 Other malaise
CPT/HCPCS: 36415; 36416; 70450; 70496; 70498; 71045; 80053; 81001; 83605; 83735; 84145; 84146; 84443; 84484; 85025; 85610; 85730; 87040; 93005; 93010; 93306; 94760; 96361; 96365; 96375; 96376; C9254; J1650; J1815; J1953; J2060; J3475; Q2009; Q9967